=== PATIENT | male | born 2000 | race Caucasian/White ===

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

== ENCOUNTER 2022-05-24 15:04 | Emergency (ER) | payer MEDICAID, OTHER ==
[~2022-05-24] VITALS: Ht 187.9 cm; Wt 72.5 kg
[2022-05-24 15:09] VITALS: BP 146/92
[2022-05-24] MEDS ORDERED: OXYMETAZOLINE (AFRIN) 0.05% NA 30 ML BTL ONE (15:18)
--- NOTE | 2022-05-24 15:48 | ED EENT ---
History of Present Illness General Chief Complaint: Nasal Problems Stated Complaint: NOSE BLEED Nursing Triage Note: PT AMB TO [facility] WITH COMPLAINT OF NOSE BLEED. 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 WHEN PT REMOVED PAPER TOWEL, A LARGE CLOT CAME OUT OF NOSE. NASAL CLAMP APPLIED AT TIME OF TRIAGE. 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 He has tried compression with no improvement, packing removed on arrival and large clot from both nares. He reports getting 1-2 nosebleeds a month, more in the winter. They have always resolved on their own without medi darwin intervention. He denies any chronic nasal problems or nasal sprays that he uses. He is not on aspirin or anticoagulants. Timing/Duration: abrupt Location: nose Prearrival Treatment: no prearrival treatment Associated Symptoms: denies symptoms Allergies and Home Medications Allergies Coded Allergies: No Known Drug Allergies (Unverified , 05/10/18) Patient Home Medication List Home Medication List Reviewed: Yes Review of Systems Review of Systems Constitutional: no symptoms reported, see HPI Nose: see HPI, clots, epistaxis All Other Systems Reviewed Negative Unless Noted: Yes Past Wzkqxsk-Upqelv-Voukid Hx Patient Social History Tobacco Use?: No Use of E-Cig and/or Vaping dev: Yes Substance use?: No Alcohol Use?: Yes Alcohol Frequency: Once in a while Pt feels they are or have been: No Seasonal Allergies Seasonal Allergies: No Past Medical History Surgeries: No Respiratory: No Cardiac: No Neurological: No Genitourinary: No Gastrointestinal: No Musculoskeletal: No Endocrine: No HEENT: No Cancer: No Psychosocial: No Integumentary: No Family Medical History No Pertinent Family Hx Physical Exam Vital Signs Vital Signs - First Documented 05/24/22 15:09 Pulse 109 Resp 22 B/P (MAP) 146/92 (110) Pulse Ox 94 O2 Delivery Room Air Height, Weight, BMI Height: 6'2.00" Weight: 155lbs. oz. 70.532129ho; 20.00 BMI Method:Stated General Appearance: WD/WN, no apparent distress Eyes: bilateral eye normal inspection, bilateral eye PERRL, bilateral eye EOMI Ears: bilateral ear auricle normal, bilateral ear canal normal, bilateral ear TM normal Nose: No active bleeding; dried blood Mouth/Throat: normal mouth inspection, other (trace blood to pharynx) Neck: non-tender, full range of motion Respiratory: chest non-tender, lungs clear, normal breath sounds Neurologic/Psychiatric: no motor/sensory deficits, alert, normal mood/affect, oriented x 3 Skin: normal color, warm/dry Progress/Results/Core Measures Results/Orders My Orders Orders - ALLISON HAMILTON Oxymetazoline 0.05% Nasal [place] (Afrin 0. (05/24/22 21:00) Oxymetazoline 0.05% Nasal [place] (Afrin 0. (05/24/22 15:18) Vital Signs/I&O 05/24/22 15:09 Pulse 109 Resp 22 B/P (MAP) 146/92 (110) Pulse Ox 94 O2 Delivery Room Air Blood Pressure Mean: 110 Progress Progress Note : Time: 15:09 Progress Note patient assessed, nasal clamp placed. 1530 clamp removed, no active bleeding. Afrin 3-4 squirts to each nare and 2x2 [address]. Will re-assess. 1550 no bleeding from right nare, trace bleeding left nare. No blood noted in pharynx. 2x2 packing to left nare 1620 no active bleeding from left nare. Trace blood on packing. New packing placed. Discharge instructions and return precautions reviewed. Departure Impression Primary Impression: Epistaxis Disposition: 01 HOME, SELF-CARE Condition: Improved Departure-Patient Inst. Decision time for Depature: 15:40 Referrals: [facility] (PCP/Family) Primary Care Physician Patient Instructions: Nosebleeds (DC) Add. Discharge Instructions: Use Manti Mist spray to nostrils 3-4 times daily, during winter months to prevent nose bleeds. Use Afrin nasal spray 3-4 squirts in each nostril, pack with 2x2s and apply ice to nose at onset of bleeding. Leave in place 20-[address] [facility] or ER, if symptoms don't resolve or worsen. All discharge instructions reviewed with patient and/or family. Voiced understanding. Copy Copies To 1: PARAM ZAMORA MD, AMY ARNP May 24, 2022 15:48
[2022-05-24] MEDS ORDERED: OXYMETAZOLINE (AFRIN) 0.05% NA 30 ML BTL SCH (21:00)
== END 2022-05-24 16:28 | disposition home or self-care (01) ==
LOC: EDUNIT# 15:04 → ER 15:05
DX: R04.0 Epistaxis (principal)
CPT/HCPCS: 99282